=== PATIENT | male | born 1975 | race Caucasian/White ===

== ENCOUNTER 2019-03-31 21:55 | Outpatient (REF) | payer BC, SELFPAY ==
[2019-03-31 22:08] LABS: Abs Immature Grans 0.01 k/cumm (0.0-0.09); Absolute Basophil Count 0.07 k/cumm (0.0-0.2); Absolute Eosinophil Count 0.44 k/cumm (0.0-0.7); Absolute Lymphocyte Count 2.18 k/cumm (1.2-3.4); Absolute Monocyte Count 0.69 k/cumm (0.11-0.7); Absolute Neutrophil Count 4.02 k/cumm (1.2-6.7); Basophils % 0.9; Eosinophils % 5.9; HCT 48.4 % (40.0-50.0); HGB 16.9 g/dL (13.5-17.5); Immature Grans % 0.1; Lymphocytes % 29.4; Mean Corp. HGB Concentration 34.9 g/dL (32.0-36.0); Mean Corpuscular Hemoglobin 30.2 pg (27.0-33.0); Mean Corpuscular Volume 86.6 fL (80-95); Mean Platelet Volume 11.6 fL (8.0-11.0); Monocytes % 9.3; Neutrophils % 54.4; Platelet Count 182 x1000/uL (130-400); RBC 5.59 m/cumm (4.50-6.00); RBC Distribution Width 13.1 % (11.8-14.1); White Blood Cell Count 7.41 k/cumm (4.4-10.8)
[2019-03-31 22:31] LABS: ALT 40 U/L (16-63); AST 26 U/L (15-37); Albumin 3.9 g/dL (3.4-5.0); Alkaline Phosphatase 78 U/L (46-116); Anion Gap 9.2 mmol/L (3-11); BUN 16 mg/dL (7-18); Bilirubin, Total 0.7 mg/dL (0.2-1.0); CO2 26.8 mmol/L (21.0-32.0); CREATININE 1.12 mg/dL (0.70-1.30); Calcium 9.2 mg/dL (8.5-10.1); Calculated LDL 160 mg/dL; Chloride 105 mmol/L (98-107); Cholesterol 223 mg/dL (50-200); Glucose 100 mg/dL (70-100); HDL Cholesterol 38 mg/dL (40-60); Potassium 4.2 mmol/L (3.5-5.1); Sodium 141 mmol/L (136-145); TSH (W/Ref FT4) 1.09 uIU/mL (0.36-3.74); Total Protein 7.1 g/dL (6.4-8.2); Triglyceride 129 mg/dL (30-150)
== END 2019-03-31 22:15 ==
LOC: NCHCN 21:55
PROVIDERS: PCP Family Medicine; Visit Provider Family Medicine
DX: F41.9 Anxiety disorder, unspecified (principal); F32.9 Major depressive disorder, single episode, unspecified; F12.20 Cannabis dependence, uncomplicated; F17.200 Nicotine dependence, unspecified, uncomplicated; R05 Cough; R37 Sexual dysfunction, unspecified; G47.33 Obstructive sleep apnea (adult) (pediatric); R06.2 Wheezing
CPT/HCPCS: 80053; 80061; 84443; 85025

== ENCOUNTER 2020-03-02 15:18 | Outpatient (REF) | payer BC, SELFPAY ==
[2020-03-02 21:47] LABS: Hemoglobin A1C 5.5 % (<5.7)
[2020-03-02 22:08] LABS: ALT 33 U/L (16-63); AST 18 U/L (15-37); Alkaline Phosphatase 78 U/L (46-116); BUN 16 mg/dL (7-18); Bilirubin, Total 0.3 mg/dL (0.2-1.0); CREATININE 0.94 mg/dL (0.70-1.30); Calcium 8.9 mg/dL (8.5-10.1); Calculated LDL 145 mg/dL (<100); Chloride 102 mmol/L (98-107); Cholesterol 206 mg/dL (<200); Folate 4.9 ng/mL (8.6-20.0); Glucose 91 mg/dL (74-106); HDL Cholesterol 33 mg/dL (40-60); Potassium 3.8 mmol/L (3.5-5.1); Sodium 137 mmol/L (136-145); Total Protein 7.1 g/dL (6.4-8.2); Triglyceride 142 mg/dL (<150); Vitamin B12 577 pg/mL (193-986)
[2020-03-04 09:42] LABS: Hepatitis C Ab w Rflx HCV PCR Negative (Negative)
[2020-03-04 10:04] LABS: HIV-1/2 Ag & Ab Screen Negative (Negative)
== END 2020-03-02 15:38 ==
LOC: NCHCN 15:18
PROVIDERS: PCP Family Medicine; Visit Provider Nurse Practitioner Family
DX: Z00.00 Encounter for general adult medical examination without abnormal findings (principal); K21.9 Gastro-esophageal reflux disease without esophagitis; R20.2 Paresthesia of skin; Z11.4 Encounter for screening for human immunodeficiency virus [HIV]; Z13.1 Encounter for screening for diabetes mellitus; Z11.59 Encounter for screening for other viral diseases
CPT/HCPCS: 80053; 80061; 86803; 87389; 82607; 82746; 83036; 83735

== ENCOUNTER 2020-09-06 14:53 | Outpatient (REF) | payer BC, SELFPAY ==
[2020-09-06 13:55] LABS: Folate 8.1 ng/mL (8.6-20.0)
== END 2020-09-06 14:54 | disposition home or self-care (01) ==
LOC: NCHCN 14:53
PROVIDERS: PCP Family Medicine; Visit Provider Nurse Practitioner Family
DX: R20.2 Paresthesia of skin (principal)
CPT/HCPCS: 82746

== ENCOUNTER 2021-01-04 12:19 | Outpatient (REF) | payer BC, SELFPAY ==
[2021-01-05 15:25] LABS: Chlamydia Result Negative (Negative); GC Result Negative (Negative)
== END 2021-01-04 12:20 | disposition home or self-care (01) ==
LOC: NCHCN 12:19
PROVIDERS: PCP Family Medicine; Visit Provider Nurse Practitioner Family
DX: R30.0 Dysuria (principal)
CPT/HCPCS: 87491; 87591